=== PATIENT | female | born 1935 | race Caucasian/White ===

== ENCOUNTER 2018-05-26 21:22 | Inpatient (IN) | payer MEDICARE ==
--- NOTE | 2018-05-26 21:50 | RADIOLOGY REPORT (SQ) ---
XR CHEST 1 VIEW HISTORY: Stroke.. COMPARISON: None. FINDINGS/IMPRESSION: Normal cardiomediastinal silhouette. Lungs are clear. No pleural effusion or pneumothorax is seen. No acute osseous findings.
--- NOTE | 2018-05-26 21:52 | RADIOLOGY REPORT (SQ) ---
CT HEAD WITHOUT IV CONTRAST HISTORY: Stroke. Headache. COMPARISON: None. TECHNIQUE: CT scan of the brain. This exam was performed according to our departmental dose-optimization program, which includes automated exposure control, adjustment of the mA and/or kV according to patient size and/or use of iterative reconstruction technique. FINDINGS: The ventricles, cisterns, and sulci are age-appropriate. The sinclair-white matter differentiation is preserved without evidence of acute infarction. Scattered areas of hypoattenuation within the periventricular white matter likely representing chronic microvascular ischemia. No acute intracranial hemorrhage or extra-axial fluid collection is seen. No midline shift, mass effect, or hydrocephalus. Sinus mucosal disease involving the frontal, ethmoid, and maxillary sinuses. No air-fluid levels. The calvarium is intact. IMPRESSION: No evidence of acute infarction. Consider MRI if there is high clinical concern.
[2018-05-26] MEDS ORDERED: ASPIRIN 81 MG TABLET, CHEWABLE PO ONE (22:16)
[2018-05-26] MEDS ORDERED: CLOPIDOGREL BISULFATE 300 MG TABLET PO ONE (22:16)
--- NOTE | 2018-05-26 22:20 | ER Document Report ---
ED General - General Chief Complaint: Weakness Stated Complaint: FACIAL DROOP Time Seen by Provider: 05/26/18 21:26 Notes: Patient is an 82-year-old female with a past medical history of hypertension, hyperlipidemia, [id number] diabetes who presents with left-sided facial droop, left-sided weakness and dysarthria. Last seen normal at 1700. Family noticed symptoms at approximately 730 when the family was having dinner. They noticed that the patient was holding food in her mouth, appear to be having difficulty swallowing and speaking. This prompted them to contact EMS and the patient was subsequently transported to the emergency department. No history of similar symptoms in the past. Family notes that the symptoms have appeared to have mostly resolved at this time without intervention. Nothing seemed to trigger or worsen the symptoms in present. No recent infectious symptoms, fever or constitutional symptoms. She does not have a local primary care doctor. She has been taking all medications as prescribed. TRAVEL OUTSIDE OF THE [place] IN LAST 30 DAYS: No Past Medical History - General Information source: Patient - Social History Smoking Status: Former Smoker Frequency of alcohol use: None Lives with: Spouse/Significant other Family History: Reviewed & Not Pertinent Patient has suicidal ideation: No Patient has homicidal ideation: No - Past Medical History Cardiac Medical History: Reports: Hx Atrial Fibrillation, Hx Hypertension Endocrine Medical History: Reports: Hx Diabetes Mellitus Type 2 Renal/ Medical History: Denies: Hx Peritoneal Dialysis Past Surgical History: Reports: Hx Hysterectomy Review of Systems - Review of Systems Notes: Constitutional: Negative for fever. HENT: Negative for sore throat. Eyes: Negative for visual changes. Cardiovascular: Negative for chest pain. Respiratory: Negative for shortness of breath. Gastrointestinal: Negative for abdominal pain, vomiting or diarrhea. Genitourinary: Negative for dysuria. Musculoskeletal: Negative for back pain. Skin: Negative for rash. Neurological: Positive for left sided weakness now resolved, facial droop 10 point ROS negative except as marked above and in HPI. Physical Exam - Vital signs Vitals: Pulse Resp BP Pulse Ox 102 H 22 H 149/61 H 94 05/26/18 21:44 05/26/18 21:44 05/26/18 21:44 05/26/18 21:44 Interpretation: Hypertensive, Tachycardic Notes: PHYSICAL EXAMINATION: GENERAL: Well-appearing, well-nourished and in no acute distress. HEAD: Atraumatic, normocephalic. EYES: Pupils equal round and reactive to light, extraocular movements intact, sclera anicteric, conjunctiva are normal. ENT: nares patent, oropharynx clear without exudates. Moist mucous membranes. NECK: Normal range of motion, supple without lymphadenopathy LUNGS: Breath sounds clear to auscultation bilaterally and equal. No wheezes rales or rhonchi. HEART: Regular rate and rhythm without murmurs ABDOMEN: Soft, nontender, normoactive bowel sounds. No guarding, no rebound. No masses appreciated. EXTREMITIES: Normal range of motion, no pitting or edema. No cyanosis. NEUROLOGICAL: Mild effacement of the left nasolabial fold. tongue protrudes midline. Extraocular motions intact. Pupils are 2 mm and equally reactive. Normal speech, gait deferred. 5 out of 5 strength in both the distal and proximal upper and lower extremities bilaterally. Sensation is grossly intact throughout. Finger to nose testing normal. Pronator drift normal. PSYCH: Normal mood, normal affect. SKIN: Warm, Dry, normal turgor, no rashes or lesions noted. Course - Re-evaluation Re-evalutation: 05/26/18 22:17 Patient presents with family noticing that she was holding food in her mouth, appeared to have a left facial droop and some mild dysarthria. Family notes that since onset of symptoms patient's left facial droop and dysarthria almost completely resolved. On my examination the patient has a very slight left facial droop, although no ongoing dysarthria or aphasia. She did however fail her swallow test. This is concerning for a limited stroke. She has no other focal neurologic deficits on examination. CT the head is clear. Labs are pending. She has been given a loading dose of 300 mg of Plavix, has also been given aspirin. She will require hospitalization for echocardiogram carotid Doppler, MRI, risk factor modification. She does not have a local primary doctor to follow-up with. Her last seen normal was 1700 placing her outside of the window for TPA and her low NIH stroke scale as well as advanced age likewise does not justify the risks of this medication discussed this case with Dr. Jung with the hospitalist who is excepted the patient for admission. - Vital Signs Vital signs: Temp Pulse Resp BP Pulse Ox 102 H 22 H 149/61 H 94 05/26/18 21:44 05/26/18 21:44 05/26/18 21:44 05/26/18 21:44 - Laboratory Result Diagrams: 05/26/18 21:00 05/26/18 21:00 Laboratory results interpreted by me: 05/26/18 05/26/18 05/26/18 21:00 21:00 21:32 RDW 15.1 H Glucose 240 H POC Glucose 216 H Triglycerides 334 H LDL Cholesterol Direct 116 H VLDL Cholesterol 66.8 H HDL Cholesterol 24 L - Diagnostic Test Radiology reviewed: Image reviewed, Reports reviewed Radiology results interpreted by me: 05/26/18 23:10 CT head: No acute intracranial bleed or mass Chest x-ray: No acute infiltrate or pneumothorax - EKG Interpretation by Me Additional EKG results interpreted by me: 05/26/18 23:11 Sinus rhythm, rate 97. No ST elevations or depressions. QTC is 468. Discharge - Discharge Clinical Impression: Facial droop, Acute ischemic stroke Dysphagia Qualifiers: Dysphagia type: unspecified Qualified Code(s): R13.10 - Dysphagia, unspecified Condition: Fair Disposition: ADMITTED INPATIENT Admitting Provider: Hospitalist Unit Admitted: IMCU Referrals: LOCALMD,NO [NO LOCAL MD] - Follow up as needed
[2018-05-26 22:22] LABS: ABSOLUTE BASOPHILS # (AUTO) 0.1 10^3/uL (0.0-0.2); ABSOLUTE EOSINOPHILS # (AUTO) 0.3 10^3/uL (0.0-0.6); ABSOLUTE LYMPHOCYTES (AUTO) 1.7 10^3/uL (0.5-4.7); ABSOLUTE MONOCYTES (AUTO) 0.4 10^3/uL (0.1-1.4); ABSOLUTE NEUT (AUTO) 4.1 10^3/uL (1.7-8.2); BASOPHILS % (AUTO) 1.5 % (0-2); EOSINOPHILS % (AUTO) 4.4 % (0-6); HEMATOCRIT 38.4 % (36.0-47.0); HEMOGLOBIN 12.8 g/dL (12.0-15.5); LYMPHOCYTES % (AUTO) 25.9 % (13-45); MEAN CORPUSCULAR HEMOGLOBIN 29.9 pg (27.0-33.4); MEAN CORPUSCULAR HGB CONC 33.3 g/dL (32.0-36.0); MEAN CORPUSCULAR VOLUME 90 fl (80-97); MONOCYTES % (AUTO) 6.7 % (3-13); PLATELET COUNT 212 10^3/uL (150-450); RED BLOOD COUNT 4.28 10^6/uL (3.72-5.28); RED CELL DISTRIBUTION WIDTH 15.1 % (11.5-14.0); SEGMENTED NEUTROPHILS % (AUTO) 61.5 % (42-78); TOTAL CELLS COUNTED % (AUTO) 100 %; WHITE BLOOD COUNT 6.6 10^3/uL (4.0-10.5)
[2018-05-26 22:30] LABS: ALANINE AMINOTRANSFERASE 26 U/L (9-52); ALBUMIN 3.6 g/dL (3.5-5.0); ALKALINE PHOSPHATASE 81 U/L (38-126); ANION GAP 10 (5-19); ASPARTATE AMINO TRANSFERASE 21 U/L (14-36); BILIRUBIN,DIRECT 0.4 mg/dL (0.0-0.4); BILIRUBIN,TOTAL 0.8 mg/dL (0.2-1.3); BLOOD UREA NITROGEN 10 mg/dL (7-20); CALCIUM 9.6 mg/dL (8.4-10.2); CARBON DIOXIDE 29 mmol/L (22-30); CHLORIDE 101 mmol/L (98-107); CHOLESTEROL 175.32 mg/dL (0-200); GLUCOSE 240 mg/dL (75-110); POTASSIUM 3.9 mmol/L (3.6-5.0); SODIUM 139.9 mmol/L (137-145); TOTAL PROTEIN 6.5 g/dL (6.3-8.2); TRIGLYCERIDES 334 mg/dL (<150)
[2018-05-26 22:40] LABS: DIRECT LDL 116 mg/dL (<100)
[2018-05-26 22:42] LABS: VLDL CHOLESTEROL 66.8 mg/dL (10-31)
[2018-05-26] MEDS ORDERED: GLUCAGON,HUMAN RECOMB 1 MG INJ IM PRN (23:18)
[2018-05-26] MEDS ORDERED: INSULIN LISPRO 100 UNIT/ML 3 ML VIAL SUBCUT PRN (23:18)
[2018-05-26] MEDS ORDERED: ACETAMINOPHEN 650 MG SUPP.RECT PR PRN (23:18)
[2018-05-26] MEDS ORDERED: DEXTROSE 40% GEL 15 GM TUBE PO PRN ×2 (23:18)
[2018-05-26] MEDS ORDERED: DEXTROSE 50%-WATER 25 GM/50 ML DISP.SYRIN IV PRN ×2 (23:18)
[2018-05-26 23:24] LABS: AMORPHOUS SEDIMENT,URINE TRACE /HPF; APPEARANCE,URINE CLOUDY; BILIRUBIN,URINE NEGATIVE (NEGATIVE); COLOR,URINE YELLOW; GLUCOSE, URINE >=500 mg/dL (NEGATIVE); KETONES,URINE NEGATIVE (NEGATIVE); LEUKOCYTE ESTERASE,URINE LARGE (NEGATIVE); NITRITE,URINE NEGATIVE (NEGATIVE); PROTEIN,URINE NEGATIVE (NEGATIVE); URINE SPECIFIC GRAVITY 1.016
[2018-05-26] MEDS ORDERED: NORMAL SALINE 1000 ML 1,000 ML IV SCH (23:30)
[2018-05-27 03:31] LABS: ABSOLUTE EOSINOPHILS # (AUTO) 0.3 10^3/uL (0.0-0.6); ABSOLUTE LYMPHOCYTES (AUTO) 2.1 10^3/uL (0.5-4.7); ABSOLUTE MONOCYTES (AUTO) 0.7 10^3/uL (0.1-1.4); ABSOLUTE NEUT (AUTO) 4.1 10^3/uL (1.7-8.2); BASOPHILS % (AUTO) 0.7 % (0-2); HEMATOCRIT 37.7 % (36.0-47.0); HEMOGLOBIN 12.6 g/dL (12.0-15.5); LYMPHOCYTES % (AUTO) 28.7 % (13-45); MEAN CORPUSCULAR HGB CONC 33.5 g/dL (32.0-36.0); MEAN CORPUSCULAR VOLUME 89 fl (80-97); PLATELET COUNT 173 10^3/uL (150-450); RED BLOOD COUNT 4.22 10^6/uL (3.72-5.28); SEGMENTED NEUTROPHILS % (AUTO) 56.6 % (42-78); TOTAL CELLS COUNTED % (AUTO) 100 %; WHITE BLOOD COUNT 7.3 10^3/uL (4.0-10.5)
[2018-05-27 03:47] LABS: ANION GAP 8 (5-19); BLOOD UREA NITROGEN 10 mg/dL (7-20); CALCIUM 9.5 mg/dL (8.4-10.2); CARBON DIOXIDE 30 mmol/L (22-30); CHLORIDE 104 mmol/L (98-107); CREATINE KINASE 30 U/L (30-135); GLUCOSE 118 mg/dL (75-110); SODIUM 141.7 mmol/L (137-145); TRIGLYCERIDES 328 mg/dL (<150)
[2018-05-27 03:57] LABS: DIRECT LDL 113 mg/dL (<100)
[2018-05-27 04:02] LABS: VLDL CHOLESTEROL 65.6 mg/dL (10-31)
[2018-05-27 04:07] LABS: CREATINE KINASE MB 0.74 ng/mL (<4.55)
[2018-05-27 04:10] LABS: TROPONIN I < 0.012 ng/mL
[2018-05-27] MEDS: NORMAL SALINE 1000 ML 1,000 ML IV PRN ×2 (05:05→09:53)
--- NOTE | 2018-05-27 05:24 | PDOC H&P ---
History of Present Illness Admission Date/PCP: 05/26/18 23:37 Patient complains of: Difficulty swallowing History of Present Illness: SIA CARRILLO is a 82 year old female with a past medical history of diabetes, dyslipidemia, atrial fibrillation, hypertension. She presents with 8 hours of left-sided facial droop, left-sided weakness and difficulty swallowing. She is found out of the window for TPA and receives conservative management. She denies chronic anticoagulation for previous episode. Left-sided weakness is greatly improved but has failed study. She denies recent change in medications Past Medical History Cardiac Medical History: Reports: Atrial Fibrillation, Hypertension Endocrine Medical History: Reports: Diabetes Mellitus Type 2, Other - Dyslipidemia Past Surgical History Past Surgical History: Reports: Hysterectomy Social History Information Source: Patient Lives with: Spouse/Significant other Smoking Status: Former Smoker Frequency of Alcohol Use: None Hx Recreational Drug Use: No Hx Prescription Drug Abuse: No - Advance Directive Resuscitation Status: Full Code Family History Family History: Hypertension Parental Family History Reviewed: Yes Children Family History Reviewed: Yes Sibling(s) Family History Reviewed.: Yes Medication/Allergy Allergies/Adverse Reactions: No Known Allergies Allergy (Verified 05/27/18 02:14) Review of Systems Constitutional: ABSENT: chills, fever(s), headache(s), weight gain, weight loss Eyes: ABSENT: visual disturbances Ears: ABSENT: hearing changes Cardiovascular: ABSENT: chest pain, dyspnea on exertion, edema, orthropnea, palpitations Respiratory: ABSENT: cough, hemoptysis Gastrointestinal: ABSENT: abdominal pain, constipation, diarrhea, hematemesis, hematochezia, nausea, vomiting Genitourinary: ABSENT: dysuria, hematuria Musculoskeletal: ABSENT: joint swelling Integumentary: ABSENT: rash, wounds Neurological: ABSENT: abnormal gait, abnormal speech, confusion, dizziness, focal weakness, syncope Psychiatric: ABSENT: anxiety, depression, homidical ideation, suicidal ideation Endocrine: ABSENT: cold intolerance, heat intolerance, polydipsia, polyuria Hematologic/Lymphatic: ABSENT: easy bleeding, easy bruising Physical Exam Vital Signs: Temp Pulse Resp BP Pulse Ox 97.7 F 89 20 153/67 H 97 05/27/18 03:03 05/27/18 03:45 05/27/18 03:45 05/27/18 03:45 05/27/18 03:45 General appearance: PRESENT: cooperative, mild distress. ABSENT: morbidly obese Head exam: PRESENT: atraumatic, normocephalic Eye exam: PRESENT: conjunctiva pink, EOMI, PERRLA. ABSENT: scleral icterus Ear exam: PRESENT: normal external ear exam Mouth exam: PRESENT: moist, tongue midline Neck exam: ABSENT: carotid bruit, JVD, lymphadenopathy, thyromegaly Respiratory exam: PRESENT: clear to auscultation kirill. ABSENT: rales, rhonchi, wheezes Cardiovascular exam: PRESENT: irregular rhythm. ABSENT: diastolic murmur, rubs , systolic murmur Pulses: PRESENT: normal dorsalis pedis pul Vascular exam: PRESENT: normal capillary refill GI/Abdominal exam: PRESENT: normal bowel sounds, soft. ABSENT: distended, guarding, mass, organolmegaly, rebound, tenderness Rectal exam: PRESENT: deferred Extremities exam: PRESENT: other Musculoskeletal exam: PRESENT: full ROM - 4+ strength on the left side Neurological exam: PRESENT: alert, awake, oriented to person, oriented to place. ABSENT: CN II-XII grossly intact - persistent left-sided facial weakness and unable to swallow. Psychiatric exam: PRESENT: appropriate affect, normal mood. ABSENT: homicidal ideation, suicidal ideation Skin exam: PRESENT: dry, intact, warm. ABSENT: cyanosis, rash Results Laboratory Results: 05/27/18 03:15 05/27/18 03:15 05/27/18 05/27/18 03:15 03:15 WBC 7.3 RBC 4.22 Hgb 12.6 Hct 37.7 MCV 89 MCH 30.0 MCHC 33.5 RDW 15.0 H Plt Count 173 Seg Neutrophils % 56.6 Lymphocytes % 28.7 Monocytes % 10.0 Eosinophils % 4.0 Basophils % 0.7 Absolute Neutrophils 4.1 Absolute Lymphocytes 2.1 Absolute Monocytes 0.7 Absolute Eosinophils 0.3 Absolute Basophils 0.0 Sodium 141.7 Potassium 4.0 Chloride 104 Carbon Dioxide 30 Anion Gap 8 BUN 10 Creatinine 0.51 L Est GFR ( Amer) > 60 Est GFR (Non-Af Amer) > 60 Glucose 118 H Calcium 9.5 Triglycerides 328 H Cholesterol 170.50 LDL Cholesterol Direct 113 H VLDL Cholesterol 65.6 H HDL Cholesterol 23 L 05/27/18 05/27/18 03:15 03:15 Creatine Kinase 30 CK-MB (CK-2) 0.74 Troponin I < 0.012 Impressions: Chest X-Ray 05/26/18 00:00 FINDINGS/IMPRESSION: Normal cardiomediastinal silhouette. Lungs are clear. No pleural effusion or pneumothorax is seen. No acute osseous findings. Head CT 05/26/18 00:00 IMPRESSION: No evidence of acute infarction. Consider MRI if there is high clinical concern. Assessment & Plan - Diagnosis (1) Acute ischemic stroke Is this a current diagnosis for this admission?: Yes Plan: CVA care set, suspect long-term dysphagia. Consider early GI consultation for PEG. (2) Atrial fibrillation Is this a current diagnosis for this admission?: Yes Plan: IV metoprolol, patient is unaware of bleeding history. Heparin ordered (3) Diabetes Is this a current diagnosis for this admission?: Yes Plan: Obtain A1c, Humalog sliding scale (4) Dyslipidemia Is this a current diagnosis for this admission?: Yes Plan: Statin therapy ideal however dysphasia prevents p.o. (5) Dysphagia Qualifiers: Dysphagia type: unspecified Qualified Code(s): R13.10 - Dysphagia, unspecified Is this a current diagnosis for this admission?: Yes Plan: Speech therapy ordered, will likely require PEG tube. - Time Time Spent: 50 to 70 Minutes - Inpatient Certification Medical Necessity: Need Close Monitoring Due to Risk of Patient Decompensation
[2018-05-27] MEDS ORDERED: HEPARIN SOD (PORCINE) 5,000 UNIT/ML 1 ML SYRINGE SUBCUT SCH (06:00)
[2018-05-27 06:22] LABS: INTERNATIONAL RATION (INR) 0.98; PROTHROMBIN TIME 13.5 SEC (11.4-15.4)
[2018-05-27 06:23] LABS: PARTIAL THROMBOPLASTIN TIME 29.7 SEC (23.5-35.8)
[2018-05-27] MEDS: HEPARIN SOD (PORCINE) 1,000 UNIT/ML 10 ML VIAL IV PRN ×2 (08:44→15:42)
[2018-05-27] MEDS: HEPARIN SODIUM,PORCINE/D5W 25,000 UNIT/250 ML RTUINJ IV PRN (08:49)
[2018-05-27] MEDS: ASPIRIN 81 MG TABLET, CHEWABLE PO SCH (09:53)
[2018-05-27] MEDS ORDERED: ASPIRIN 300 MG SUPP, RECTAL PR SCH (10:00)
--- NOTE | 2018-05-27 10:40 | RADIOLOGY REPORT (SQ) ---
EXAM DESCRIPTION: MRI HEAD WITHOUT COMPLETED DATE/TIME: 05/27/2018 10:24 am REASON FOR STUDY: cva COMPARISON: CT dated 05/26/2018. TECHNIQUE: Multiplanar imaging includes non-contrasted T1, T2, FLAIR, and diffusion with ADC map seq uences. Images stored on PACS. LIMITATIONS: None. FINDINGS: ANATOMY: No anomalies. Normal vascular flow voids. Pituitary fossa normal. CSF SPACES: Atrophy induced prominence of ventricles and CSF spaces. CEREBRUM: High signal intensity lesions scattered throughout the white matter on FLAIR imaging with d istribution suggesting micro-vascular ischemic changes. No evidence of hemorrhage, mass, or extraaxi al fluid collection. POSTERIOR FOSSA: No signal alteration. No hemorrhage. No edema, masses or mass effect. Internal jori tory canals, cerebello-pontine angles, mastoids normal. DIFFUSION IMAGING: A few tiny punctate areas of restricted diffusion in the right insular cortex. ORBITS: No masses. Globes normal. PARANASAL SINUSES: Mucous membrane thickening in the maxillary, ethmoid, and frontal sinuses. OTHER: No other significant finding. IMPRESSION: 1. ATROPHY AND CHRONIC MICRO-VASCULAR ISCHEMIC CHANGES. THERE ARE A FEW TINY PUNCTATE AREAS OF RESTR ICTED DIFFUSION IN THE RIGHT INSULAR CORTEX SUSPICIOUS FOR TINY ACUTE LACUNAR INFARCTS. 2. SINUS DISEASE. EVIDENCE OF ACUTE STROKE: YES. RIGHT MCA. TECHNICAL DOCUMENTATION: JOB ID: [id number] [employer]- All Rights Reserved Reading location - IP/workstation name: [email or web address]
[2018-05-27 10:47] LABS: CREATINE KINASE MB 0.86 ng/mL (<4.55)
[2018-05-27 10:52] LABS: TROPONIN I < 0.012 ng/mL
--- NOTE | 2018-05-27 13:52 | PDOC PROGRESS REPORT ---
Subjective Progress Note for:: 05/27/18 Subjective:: Ms. Barroso is an 82 yr old female with a PMH of diabetes, dyslipidemia, atrial fibrillation, and hypertension who initially presented with left-sided facial droop, left-sided weakness and difficulty swallowing. Patient presented to be in the window. And was not a TPA candidate. Patient was started on heparin drip last night apparently because of initial dysphagia (unable to take PO meds ) for a history of atrial fibrillation. Initial CT of the head was unremarkable. No cute event overnight. Upon encounter, patient is comfortable. She is fully awake and coherent. She has noticeable left-sided facial droop but her left- sided weakness has resolved. She was able to swallow well and was actually evaluated and cleared by speech therapy this morning for regular diet. She denies any headache, dizziness, nausea, chest pain or shortness of breath. Reason For Visit: DYSPHAGIA,CVA,DIABETES Physical Exam Vital Signs: Temp Pulse Resp BP Pulse Ox 97.5 F 69 18 139/57 H 97 05/27/18 12:18 05/27/18 12:18 05/27/18 12:18 05/27/18 12:18 05/27/18 12:18 Intake & Output 05/26/18 05/27/18 05/28/18 06:59 06:59 06:59 Intake Total 960 Output Total 300 Balance 660 General appearance: PRESENT: no acute distress, well-developed, well-nourished Head exam: PRESENT: atraumatic, normocephalic Eye exam: PRESENT: conjunctiva pink, EOMI, PERRLA. ABSENT: scleral icterus Ear exam: PRESENT: normal external ear exam Mouth exam: PRESENT: moist, tongue midline Neck exam: ABSENT: carotid bruit, JVD, lymphadenopathy, thyromegaly Respiratory exam: PRESENT: clear to auscultation kirill. ABSENT: rales, rhonchi, wheezes Cardiovascular exam: PRESENT: RRR. ABSENT: diastolic murmur, rubs, systolic murmur Pulses: PRESENT: normal dorsalis pedis pul Vascular exam: PRESENT: normal capillary refill GI/Abdominal exam: PRESENT: normal bowel sounds, soft. ABSENT: distended, guarding, mass, organolmegaly, rebound, tenderness Rectal exam: PRESENT: deferred Neurological exam: PRESENT: alert, awake, oriented to person, oriented to place , oriented to time, oriented to situation, other - Note of a left-sided facial droop. ABSENT: motor sensory deficit Results Laboratory Results: 05/27/18 03:15 05/27/18 03:15 05/27/18 05/27/18 03:15 03:15 WBC 7.3 RBC 4.22 Hgb 12.6 Hct 37.7 MCV 89 MCH 30.0 MCHC 33.5 RDW 15.0 H Plt Count 173 Seg Neutrophils % 56.6 Lymphocytes % 28.7 Monocytes % 10.0 Eosinophils % 4.0 Basophils % 0.7 Absolute Neutrophils 4.1 Absolute Lymphocytes 2.1 Absolute Monocytes 0.7 Absolute Eosinophils 0.3 Absolute Basophils 0.0 Sodium 141.7 Potassium 4.0 Chloride 104 Carbon Dioxide 30 Anion Gap 8 BUN 10 Creatinine 0.51 L Est GFR ( Amer) > 60 Est GFR (Non-Af Amer) > 60 Glucose 118 H Calcium 9.5 Triglycerides 328 H Cholesterol 170.50 LDL Cholesterol Direct 113 H VLDL Cholesterol 65.6 H HDL Cholesterol 23 L 05/27/18 05/27/18 05/27/18 03:15 03:15 09:17 Creatine Kinase 30 27 L CK-MB (CK-2) 0.74 Troponin I < 0.012 05/27/18 09:17 Creatine Kinase CK-MB (CK-2) 0.86 Troponin I < 0.012 Impressions: Chest X-Ray 05/26/18 00:00 FINDINGS/IMPRESSION: Normal cardiomediastinal silhouette. Lungs are clear. No pleural effusion or pneumothorax is seen. No acute osseous findings. Head CT 05/26/18 00:00 IMPRESSION: No evidence of acute infarction. Consider MRI if there is high clinical concern. Head MRI 05/27/18 00:00 IMPRESSION: 1. ATROPHY AND CHRONIC MICRO-VASCULAR ISCHEMIC CHANGES. THERE ARE A FEW TINY PUNCTATE AREAS OF RESTRICTED DIFFUSION IN THE RIGHT INSULAR CORTEX SUSPICIOUS FOR TINY ACUTE LACUNAR INFARCTS. 2. SINUS DISEASE. EVIDENCE OF ACUTE STROKE: YES. RIGHT MCA. Assessment & Plan - Diagnosis (1) Acute ischemic stroke Is this a current diagnosis for this admission?: Yes Plan: CT of the head was negative. Patient was not a TPA candidate. Her initial presentation of left-sided weakness and dysphagia appears to have resolved. She continues to have left-sided facial droop. An MRI was just done and shows tiny lacunar infarcts on the right insular area. Cardiac Doppler is pending. Called about initial echo report which showed possible thrombus in the IVC. Discussed with Dr. Gifford who deemed this is more consistent with chronic calcification rather than an acute thrombus. Continue aspirin and statin. (2) Atrial fibrillation Is this a current diagnosis for this admission?: Yes Plan: She is currently in sinus rhythm. EKG shows first-degree AV block with a heart rate of 97. On heparin drip. Discussed with patient. She does say she has history of Afib but says she is not on chronic anticoagulation. Discussed risks and benefits of chronic anticoagulation including risk of bleeding. She says she would rather have [facility] decide about it. She prefers to continue the heparin tonight and then decide about intermediate anticoagulation tomorrow. Called [facility] and left a voice message about this. (3) Diabetes Is this a current diagnosis for this admission?: Yes Plan: Continue sliding scale. Will continue to monitor blood sugars. - Time Time Spent with patient: 25-34 minutes
--- NOTE | 2018-05-27 14:09 | RADIOLOGY REPORT (SQ) ---
EXAM DESCRIPTION: CAROTID DOPPLER COMPLETED DATE/TIME: 05/27/2018 1:39 pm REASON FOR STUDY: cva COMPARISON: None. TECHNIQUE: Grayscale ultrasound, Doppler velocity and spectra, and color Doppler images acquired of the extra-cranial carotid and vertebral arteries. Images stored on PACS. LIMITATIONS: None. FINDINGS: RIGHT CAROTID CCA Velocities: Within normal limits. ICA Velocities Peak systolic 1.24 m/s. End diastolic 0.34 m/s. Proximal ICA/CCA peak systolic ratio 1.96. Shadowing plaque. LEFT CAROTID CCA Velocities: Within normal limits. ICA Velocities Peak systolic 2.18 m/s. End diastolic 0.56 m/s. Proximal ICA/CCA peak systolic ratio 3.7. Shadowing plaque. VERTEBRAL ARTERIES: Antegrade flow. Normal waveforms. SUBCLAVIAN ARTERIES: No finding. OTHER: No other significant finding. IMPRESSION: BILATERAL PLAQUE. NO HEMODYNAMICALLY SIGNIFICANT STENOSIS ON THE RIGHT. 50- 69% STENOS IS OF PROXIMAL LEFT INTERNAL CAROTID ARTERY. COMMENT: Quality ID #195: Velocity criteria are extrapolated from the diameter data as defined by t he Society of Radiologists in Ultrasound Consensus Conference. Radiology 2003: 229; 340-346. TECHNICAL DOCUMENTATION: JOB ID: [id number] [employer]- All Rights Reserved Reading location - IP/workstation name: [email or web address]
[2018-05-27 15:16] LABS: APPEARANCE,URINE CLEAR; BILIRUBIN,URINE NEGATIVE (NEGATIVE); COLOR,URINE STRAW; GLUCOSE, URINE 50 mg/dL (NEGATIVE); KETONES,URINE NEGATIVE (NEGATIVE); LEUKOCYTE ESTERASE,URINE MODERATE (NEGATIVE); NITRITE,URINE NEGATIVE (NEGATIVE); PROTEIN,URINE NEGATIVE (NEGATIVE); URINE SPECIFIC GRAVITY 1.006
[2018-05-27 15:46] LABS: CREATINE KINASE MB 0.78 ng/mL (<4.55)
[2018-05-27 15:50] LABS: TROPONIN I < 0.012 ng/mL
--- NOTE | 2018-05-27 20:52 | EKG REPORT ---
SEVERITY:- ABNORMAL ECG - SINUS RHYTHM FIRST DEGREE AV BLOCK PROBABLE LEFT ATRIAL ABNORMALITY ABNRM R PROG, CONSIDER ASMI OR LEAD PLACEMENT BORDERLINE T WAVE ABNORMALITIES : Confirmed by: Mary Lewis MD 27-May-2018 20:51:06
[2018-05-27] MEDS ORDERED: ATORVASTATIN CALCIUM 80 MG TABLET PO SCH (22:00)
[2018-05-28 05:23] LABS: ANION GAP 5 (5-19); BLOOD UREA NITROGEN 9 mg/dL (7-20); CALCIUM 9.3 mg/dL (8.4-10.2); CARBON DIOXIDE 30 mmol/L (22-30); CHLORIDE 104 mmol/L (98-107); GLUCOSE 130 mg/dL (75-110); POTASSIUM 4.1 mmol/L (3.6-5.0); SODIUM 138.8 mmol/L (137-145)
[2018-05-28] MEDS: ASPIRIN 81 MG TABLET, CHEWABLE PO SCH (10:05)
[2018-05-28] MEDS: HEPARIN SODIUM,PORCINE/D5W 25,000 UNIT/250 ML RTUINJ IV PRN (11:18)
--- NOTE | 2018-05-28 14:14 | XCELERA REPORT ---
[address] [address] Transthoracic Echocardiogram Report Name: SIA CARRILLO Age: 82 yrs Gender: Female : 1935 Patient Status: Inpatient Patient Location: [address] [place] [address] Study Date: 05/27/2018 11:04 AM Height: 64 in Weight: 166 lb BSA: 1.8 m2 Procedure: A two-dimensional transthoracic echocardiogram with color flow and Doppler was performed. Study Quality: Fair. Reason For Study: cva afib History: cva afib. Ordering Physician: PUJA REYNOSO Performed By: Parish Milian Interpretation Summary There is no obvious cardiac source of embolus noted on this transthoracic echocardiogram. Follow-up with a TANGELA is suggested if cardiac source is still suspected. The left ventricle is normal in size. There is normal left ventricular wall thickness. LV EF is 60% Left ventricular systolic function is normal. Doppler measurements suggest normal left ventricular diastolic function The left ventricular wall motion is normal. There is no thrombus. The right ventricle is grossly normal size. The right atrium is normal. The left atrial size is normal. There is no evidence of mitral valve prolapse. There is no mitral valve stenosis. There is a mild amount of mitral regurgitation There is no aortic valve stenosis There is aortic sclerosis without aortic stenosis. There is no tricuspid stenosis. There is a trace amount of tricuspid regurgitation Unable to calculate RVSP due lack of TR jet. There is no pulmonic valvular stenosis. There is no pulmonic valvular regurgitation. The aortic root is normal size. There are 2 calcified rounded lesions: Old calcified clot versus scar.( IVC Reiviewed by Dr.Lennox Dutta also) There is no pericardial effusion. There is no obvious cardiac source of embolus noted on this transthoracic echocardiogram. Follow-up with a TANGELA is suggested if cardiac source is still suspected MMode/2D Measurements & Calculations RVDd: 3.4 cm LVIDd: 5.7 cm FS: 31.5 % Ao root diam: 2.5 cm IVSd: 0.76 cm LVIDs: 3.9 cm EDV(Teich): 161.5 ml Ao root area: 5.1 cm2 LVPWd: 1.0 cm ESV(Teich): 66.7 ml LA dimension: 3.4 cm EF(Teich): 58.7 % Doppler Measurements & Calculations MV E max rebecca: MV P1/2t max rebecca: Ao V2 max: LV V1 max P.6 cm/sec 154.2 cm/sec 162.1 cm/sec 2.0 mmHg MV A max rebecca: MV P1/2t: 65.4 msec Ao max PG: LV V1 max: 140.5 cm/sec MVA(P1/2t): 3.4 cm2 10.5 mmHg 71.3 cm/sec MV E/A: 1.1 MV dec slope: 690.2 cm/sec2 MV dec time: 0.19 sec PA V2 max: MV P1/2t-pr_phl: 90.6 cm/sec 65.4 msec PA max P.3 mmHg Left Ventricle The left ventricle is normal in size. There is normal left ventricular wall thickness. LV EF is 60%. Left ventricular systolic function is normal. Doppler measurements suggest normal left ventricular diastolic function. The left ventricular wall motion is normal. There is no thrombus. Right Ventricle The right ventricle is grossly normal size. Atria The right atrium is normal. The left atrial size is normal. Mitral Valve There is mild mitral leaflet calcification. There is mild mitral annular calcification. There is no evidence of mitral valve prolapse. There is no vegetation seen on the mitral valve. There is no mitral valve stenosis. There is a mild amount of mitral regurgitation. Aortic Valve There is no aortic valvular vegetation. There is no aortic valve stenosis. There is aortic sclerosis without aortic stenosis. There is no LVOT obstruction. No aortic regurgitation is present. Tricuspid Valve There is no tricuspid stenosis. There is a trace amount of tricuspid regurgitation. Unable to calculate RVSP due lack of TR jet. Pulmonic Valve There is no pulmonic valvular stenosis. There is no pulmonic valvular regurgitation. Great Vessels The aortic root is normal size. There are 2 calcified rounded lesions: Old calcified clot versus scar.( IVC Reiviewed by Dr.Lennox Dutta also). Effusions There is no pericardial effusion. : PUJA REYNOSO > Mary Lewis
[2018-05-28 16:32] VITALS: BP 145/57
[2018-05-28] MEDS ORDERED: APIXABAN 2.5 MG TABLET PO ONE (17:28)
[2018-05-28] MEDS ORDERED: APIXABAN 2.5 MG TABLET PO SCH (18:00)
--- NOTE | 2018-05-28 18:04 | PDOC DISCHARGE SUMMARY ---
General - Admit/Disc Date/PCP Admission Date/Primary Care Provider: 05/26/18 23:37 Discharge Date: 05/28/18 - Discharge Diagnosis (1) Acute ischemic stroke Is this a current diagnosis for this admission?: Yes (2) Atrial fibrillation Is this a current diagnosis for this admission?: Yes (3) Diabetes Is this a current diagnosis for this admission?: Yes - Additional Information Resuscitation Status: Full Code Prescriptions: Apixaban [Eliquis 2.5 mg Tablet] 2.5 mg PO BID #60 tablet Atorvastatin Calcium [Lipitor 40 mg Tablet] 40 mg PO QHS #30 tablet Metformin HCl [Glucophage 500 mg Tablet] 500 mg PO BID #60 tablet Home Medications: Aspirin [Ecotrin 81 mg EC Tablet] 81 mg PO DAILY 05/27/18 Diltiazem HCl [Diltiazem 24Hr ER] 300 mg PO DAILY 05/27/18 Isosorbide Mononitrate [Isosorbide Mononitrate ER] 30 mg PO DAILY 05/27/18 Losartan Potassium [Cozaar 100 mg Tablet] 100 mg PO DAILY 05/27/18 Multivitamin [Tab-A-De (Multiple Vitamin) Tablet] 1 tab PO DAILY 05/27/18 [place]-3 Fatty Acids/Fish Oil [Fish Oil 1,000 mg Capsule] 1,000 mg PO DAILY 05/27 Omeprazole 20 mg PO DAILY 05/27/18 Apixaban [Eliquis 2.5 mg Tablet] 2.5 mg PO BID #60 tablet 05/28/18 Atorvastatin Calcium [Lipitor 40 mg Tablet] 40 mg PO QHS #30 tablet 05/28/18 Metformin HCl [Glucophage 500 mg Tablet] 500 mg PO BID #60 tablet 05/28/18 History of Present Illness History of Present Illness: SIA CARRILLO is a 82 year old female with a past medical history of diabetes, dyslipidemia, history of atrial fibrillation, hypertension. She presents with 8 hours of left-sided facial droop, left-sided weakness and difficulty swallowing. She is found out of the window for TPA and received conservative management. She denies chronic anticoagulation for previous episode. Hospital Course Hospital Course: SIA CARRILLO is a 82 year old female with a past medical history of diabetes, dyslipidemia, history of atrial fibrillation, hypertension. She presents with 8 hours of left-sided facial droop, left-sided weakness and difficulty swallowing. Initial CT of the head was unremarkable. Patient presented beyond the period for TPA administration. MRI of the brain was pursued and it did show tiny acute infarct on the right insular area. The next day, patient's left-sided weakness completely resolved. Her dysphagia also resolved and she passed swallow evaluation. Patient did have initial persistent left facial droop which persisted but did improve on the day of discharge. Patient was initially started on heparin drip upon admission due to her history of atrial fibrillation. She has a chadsvasc score of 5. Upon admission, she was in sinus rhythm. Patient is not sure why she was not started on chronic anticoagulation. Discussed with family particularly patient' s son who was not opposed to patient being started on chronic anticoagulation. Echocardiogram also done which showed preserved ejection fraction but did show a possible old and calcified clot versus scar on aortic root. Doppler ultrasound showed less than 70% stenosis in the proximal left ICA. Discussed in length the benefits and risks of anticoagulation including the benefit of reducing risk of stroke but conferring risk of bleeding complications. Patient son denies history of falls at home. Patient and son are aware of the risks and benefits of anticoagulation and agreed to transition patient to [facility]. Aspirin and statin were also continued. Her A1c came back improved at 6.2. Her metformin was decreased to 500 mg daily upon discharge. Physical Exam Vital Signs: Temp Pulse Resp BP Pulse Ox 98.3 F 73 18 145/57 H 99 05/28/18 15:23 05/28/18 15:23 05/28/18 15:23 05/28/18 15:55 05/28/18 15:23 Intake & Output 05/27/18 05/28/18 05/29/18 06:59 06:59 06:59 Intake Total 2522 425 Output Total 800 Balance 1722 425 Weight 163 lb 12.855 oz General appearance: PRESENT: no acute distress, well-developed, well-nourished Head exam: PRESENT: atraumatic, normocephalic Eye exam: PRESENT: conjunctiva pink, EOMI, PERRLA. ABSENT: scleral icterus Ear exam: PRESENT: normal external ear exam Mouth exam: PRESENT: moist, tongue midline Neck exam: ABSENT: carotid bruit, JVD, lymphadenopathy, thyromegaly Respiratory exam: PRESENT: clear to auscultation kirill. ABSENT: rales, rhonchi, wheezes Cardiovascular exam: PRESENT: RRR. ABSENT: diastolic murmur, rubs, systolic murmur Vascular exam: PRESENT: normal capillary refill GI/Abdominal exam: PRESENT: normal bowel sounds, soft. ABSENT: distended, guarding, mass, organolmegaly, rebound, tenderness Rectal exam: PRESENT: deferred Extremities exam: PRESENT: full ROM. ABSENT: calf tenderness, clubbing, pedal edema Neurological exam: PRESENT: alert, awake, oriented to person, oriented to place , oriented to time, oriented to situation, other - very minimal left facial droop which is significantly improved from admission. ABSENT: motor sensory deficit Results Laboratory Results: 05/27/18 03:15 05/28/18 04:23 05/28/18 04:23 Sodium 138.8 Potassium 4.1 Chloride 104 Carbon Dioxide 30 Anion Gap 5 BUN 9 Creatinine 0.50 L Est GFR ( Amer) > 60 Est GFR (Non-Af Amer) > 60 Glucose 130 H Calcium 9.3 05/27/18 05/27/18 05/27/18 03:15 03:15 09:17 Creatine Kinase 30 27 L CK-MB (CK-2) 0.74 Troponin I < 0.012 05/27/18 05/27/18 05/27/18 09:17 15:00 15:00 Creatine Kinase 26 L CK-MB (CK-2) 0.86 0.78 Troponin I < 0.012 < 0.012 Impressions: Chest X-Ray 05/26/18 00:00 FINDINGS/IMPRESSION: Normal cardiomediastinal silhouette. Lungs are clear. No pleural effusion or pneumothorax is seen. No acute osseous findings. Head CT 05/26/18 00:00 IMPRESSION: No evidence of acute infarction. Consider MRI if there is high clinical concern. Carotid Doppler Study 05/27/18 00:00 IMPRESSION: BILATERAL PLAQUE. NO HEMODYNAMICALLY SIGNIFICANT STENOSIS ON THE RIGHT. 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 Head MRI 05/27/18 00:00 IMPRESSION: 1. ATROPHY AND CHRONIC MICRO-VASCULAR ISCHEMIC CHANGES. THERE ARE A FEW TINY PUNCTATE AREAS OF RESTRICTED DIFFUSION IN THE RIGHT INSULAR CORTEX SUSPICIOUS FOR TINY ACUTE LACUNAR INFARCTS. 2. SINUS DISEASE. EVIDENCE OF ACUTE STROKE: YES. RIGHT MCA. Qualifiers - * PATIENT BEING DISCHARGED WITH ANY OF THE FOLLOWING DIAGNOSIS: Stroke VTE patient discharged on overlapping Therapy?: Yes Stroke Pt being discharged on Anti-thrombolytic therapy?: No Reason(s) for not prescribing Anti-thrombolytic therapy:: Medical Contraindication Stroke Pt being discharged on Anti-coagulation therapy?: Yes Stroke Pt being discharged on Statins?: Yes
== END 2018-05-28 18:36 | disposition home or self-care (01) | DRG 66 ==
LOC: ER 21:22 → EH 23:37 → 3W 05-27 03:05
PROVIDERS: ADMIT Internal Medicine; ATTEND Internal Medicine
DX: I63.411 Cerebral infarction due to embolism of right middle cerebral artery (principal); I48.91 Unspecified atrial fibrillation; E11.8 Type 2 diabetes mellitus with unspecified complications; R29.810 Facial weakness; R13.10 Dysphagia, unspecified; I10 Essential (primary) hypertension; E78.5 Hyperlipidemia, unspecified
CPT/HCPCS: 36415; 70450; 70551; 71045; 80048; 80053; 80061; 81001; 82550; 82553; 82962; 83036; 84484; 85025; 85610; 85730; 93005; 93010; 93306; 93880; 99285; G8978-GP; G8979-GP; G8987-GO; G8988-GO; G8989-GO; G8996-GN; G8997-GN; G8998-GN; J1644; J3490

== ENCOUNTER 2018-09-02 22:40 | Emergency (ER) | payer MEDICARE ==
[2018-09-03] MEDS ORDERED: NORMAL SALINE 1000 ML 1,000 ML IV ONE (02:13)
[2018-09-03 02:36] LABS: ABSOLUTE BASOPHILS # (AUTO) 0.1 10^3/uL (0.0-0.2); ABSOLUTE LYMPHOCYTES (AUTO) 0.9 10^3/uL (0.5-4.7); ABSOLUTE MONOCYTES (AUTO) 0.6 10^3/uL (0.1-1.4); ABSOLUTE NEUT (AUTO) 11.9 10^3/uL (1.7-8.2); BASOPHILS % (AUTO) 1.1 % (0-2); EOSINOPHILS % (AUTO) 0.2 % (0-6); HEMATOCRIT 38.2 % (36.0-47.0); HEMOGLOBIN 12.5 g/dL (12.0-15.5); LYMPHOCYTES % (AUTO) 6.5 % (13-45); MEAN CORPUSCULAR HEMOGLOBIN 28.7 pg (27.0-33.4); MEAN CORPUSCULAR HGB CONC 32.7 g/dL (32.0-36.0); MEAN CORPUSCULAR VOLUME 88 fl (80-97); MONOCYTES % (AUTO) 4.1 % (3-13); PLATELET COUNT 190 10^3/uL (150-450); RED BLOOD COUNT 4.36 10^6/uL (3.72-5.28); RED CELL DISTRIBUTION WIDTH 15.7 % (11.5-14.0); SEGMENTED NEUTROPHILS % (AUTO) 88.1 % (42-78); TOTAL CELLS COUNTED % (AUTO) 100 %; WHITE BLOOD COUNT 13.5 10^3/uL (4.0-10.5)
[2018-09-03 03:00] LABS: CREATINE KINASE MB 0.88 ng/mL (<4.55); TROPONIN I < 0.012 ng/mL
[2018-09-03 03:37] LABS: ALANINE AMINOTRANSFERASE 20 U/L (9-52); ALBUMIN 3.8 g/dL (3.5-5.0); ALKALINE PHOSPHATASE 72 U/L (38-126); ANION GAP 9 (5-19); ASPARTATE AMINO TRANSFERASE 17 U/L (14-36); BILIRUBIN,DIRECT 0.2 mg/dL (0.0-0.4); BILIRUBIN,TOTAL 0.6 mg/dL (0.2-1.3); BLOOD UREA NITROGEN 14 mg/dL (7-20); CALCIUM 9.5 mg/dL (8.4-10.2); CARBON DIOXIDE 29 mmol/L (22-30); CHLORIDE 105 mmol/L (98-107); CREATINE KINASE 39 U/L (30-135); GLUCOSE 162 mg/dL (75-110); POTASSIUM 4.2 mmol/L (3.6-5.0); SODIUM 142.5 mmol/L (137-145); TOTAL PROTEIN 6.3 g/dL (6.3-8.2)
[2018-09-03 04:29] LABS: APPEARANCE,URINE SLIGHTLY-CLOUDY; BILIRUBIN,URINE NEGATIVE (NEGATIVE); COLOR,URINE YELLOW; GLUCOSE, URINE 150 mg/dL (NEGATIVE); KETONES,URINE NEGATIVE (NEGATIVE); LEUKOCYTE ESTERASE,URINE SMALL (NEGATIVE); NITRITE,URINE NEGATIVE (NEGATIVE); PROTEIN,URINE NEGATIVE (NEGATIVE); URINE SPECIFIC GRAVITY 1.015
--- NOTE | 2018-09-03 05:15 | ER Document Report ---
ED General - General Chief Complaint: Nausea/Vomiting Stated Complaint: VOMITTING AND DIZZINESS Time Seen by Provider: 09/03/18 04:59 Notes: Patient is an 83-year-old female who presents to the emergency department with a chief complaint of dizziness and vomiting. Her symptoms started last night around 7 or 8:00 last night. She states that after she ate she did not feel well. She described her dizziness as more of a lightheaded feeling. She only vomited once. Her bout of vomiting was after she ate. She did feel nauseous, but does not feel nauseous now. Her last bowel movement was yesterday. She adamantly denies any abdominal pain, dysuria, back pain, or any pain of any sort. She denies any sinus pressure or ear pain. She denies any chest pain or fever. She denies any projectile vomiting. She has a history of a CVA, diabe devi, cardiac stent placement. TRAVEL OUTSIDE OF THE [place] IN LAST 30 DAYS: No - Related Data Allergies/Adverse Reactions: No Known Allergies Allergy (Verified 05/27/18 02:14) Past Medical History - Social History Smoking Status: Former Smoker Family History: Hypertension Patient has suicidal ideation: No Patient has homicidal ideation: No - Past Medical History Cardiac Medical History: Reports: Hx Atrial Fibrillation, Hx Hypertension Endocrine Medical History: Reports: Hx Diabetes Mellitus Type 2 Renal/ Medical History: Denies: Hx Peritoneal Dialysis Past Surgical History: Reports: Hx Appendectomy, Hx Hysterectomy Review of Systems - Review of Systems Notes: REVIEW OF SYSTEMS: CONSTITUTIONAL : Denies recent illness. Denies recent unintentional weight loss. Denies fever, chills, or sweats. EENT: Denies eye, ear, throat, or mouth pain, discharge, or symptoms. Denies nasal or sinus congestion. CARDIOVASCULAR: Denies chest pain. RESPIRATORY: Denies shortness of breath, cough, congestion, difficulty breathing, or wheezing. GASTROINTESTINAL: See HPI GENITOURINARY: Denies difficulty urinating, burning, blood in urine, urgency or frequency. MUSCULOSKELETAL: Denies neck and back pain. Denies joint pain or swelling. SKIN: Denies rash, itchiness, or lesions HEMATOLOGIC : Denies easy bruising or bleeding. LYMPHATIC: Denies swollen, painful, enlarged glands. NEUROLOGICAL: See HPI PSYCHIATRIC: Denies stress, anxiety, alteration in sleep patterns, or depression. All other systems reviewed and negative. Physical Exam - Vital signs Vitals: Temp Pulse BP Pulse Ox 97.3 F 73 137/52 H 94 09/02/18 22:51 09/02/18 22:51 09/02/18 22:51 09/02/18 22:51 - Notes Notes: PHYSICAL EXAMINATION: GENERAL: Appears well, healthy, well-nourished, no acute distress. HEAD: Normocephalic, atraumatic. EYES: PERRL, conjunctiva normal, all extraocular movements intact, sclera nonicteric ENT: Moist mucous membranes. NECK: Supple, no noticeable swelling, redness, rash. Normal range of motion. LUNGS: Equal breath sounds bilaterally and clear to auscultation. No wheezes rales or rhonchi. CARDIOVASCULAR: S1-S2, regular rate, regular rhythm. Radial pulses 2+, normal. ABDOMEN: Normoactive bowel sounds. Soft, nontender, no guarding, no rebound t enderness, and no masses palpated. EXTREMITIES: Normal strength and range of motion, no pitting or edema. No cyanosis. NEUROLOGICAL: Moves all extremities upon command. Strength 5/5 in all extrem ities. PSYCH: Normal mood, normal affect. SKIN: Warm, dry. No rash, lesions, ulcerations noted. Normal skin turgor. Course - Re-evaluation Re-evalutation: Patient's labs are unremarkable. CT of her head is normal. She states that she does not have any abdominal pain, urinary symptoms, or any symptoms other than having dizziness and vomiting yesterday. She states she feels better after receiving a 1 L bolus. Her chest x-ray interpretation from the radiologist states that there is a multitude of possibilities on her chest x-ray. I looked at her chest x-ray, and her chest x-ray appears clear to me. Her lung sounds ar e clear, I do not suspect pneumonia. She has not been running any fevers. I discussed her results with her at bedside. - Vital Signs Vital signs: Temp Pulse Resp BP Pulse Ox 98.0 F 76 14 131/73 H 97 09/03/18 08:59 09/03/18 08:59 09/03/18 08:59 09/03/18 08:59 09/03/18 08:59 - Laboratory Result Diagrams: 09/03/18 02:21 09/03/18 03:10 Laboratory results interpreted by me: 09/03/18 09/03/18 09/03/18 02:21 03:10 04:14 WBC 13.5 H RDW 15.7 H Seg Neutrophils % 88.1 H Lymphocytes % 6.5 L Absolute Neutrophils 11.9 H Glucose 162 H Urine Glucose (UA) 150 H Urine Urobilinogen 2.0 H Ur Leukocyte Esterase SMALL H Discharge - Discharge Clinical Impression: Dizziness Nausea & vomiting Qualifiers: Vomiting type: unspecified Vomiting Intractability: non-intractable Qualified Code(s): R11.2 - Nausea with vomiting, unspecified Condition: Stable Disposition: HOME, SELF-CARE Additional Instructions: You were seen in the emergency department for dizziness and vomiting. It is unclear as to what was the cause of your dizziness and vomiting. Please follow- up with your primary care provider in regards to this visit on Wednesday. Labs look normal at this time. If you develop abdominal pain, a fever greater than 100.4 F, or worsening symptoms, please return to the emergency department.
--- NOTE | 2018-09-03 06:03 | RADIOLOGY REPORT (SQ) ---
EXAM DESCRIPTION: XR CHEST 1 VIEW COMPLETED DATE/TME: 09/03/2018 05:15 CLINICAL HISTORY: 83 years Female, weakness COMPARISON:05/26/2018 NUMBER OF VIEWS/TECHNIQUE: 1/AP FINDINGS: Adequate lung volume, moderate left basilar opacity-effusion, small nodular-patchy opacity of the left mid-lower lung field,, normal cardiac silhouette, atherosclerosis, and intact bony thorax. IMPRESSION: Left lower lung opacities-effusion. Differential etiologies include infectious, inflammatory, and neoplastic processes. Recommend CR/CT surveillance including at 7-12 weeks following initiation of any clinically warranted therapy.kana
--- NOTE | 2018-09-03 06:21 | RADIOLOGY REPORT (SQ) ---
EXAM DESCRIPTION: CT HEAD WITHOUT IV CONTRAST COMPLETED DATE/TME: 09/03/2018 05:15 CLINICAL HISTORY: 83 years, Female, weakness COMPARISON: 05/26/2018 TECHNIQUE: Axial CT images of the brain were obtained without contrast. Sagittal and coronal reformats were performed. [facility] [id number] Images stored on PACS. All CT scanners at this facility use dose modulation, iterative reconstruction, and/or weight based dosing when appropriate to reduce radiation dose to as low as reasonably achievable (ALARA). [facility]: Dose Right [facility]: CareDose [facility]: Dose Right [facility]: Teradose 4D [facility]: [employer] LIMITATIONS: None. FINDINGS: There is no cortical acute infarct, hemorrhage, mass, edema, hydrocephalus, or extra-axial fluid collection. There is diffuse cerebral atrophy with mild periventricular and deep white matter chronic microvascular changes. There is a 6 mm osteoma within the left ethmoid air cells. There is mucosal thickening of the ethmoid air cells and maxillary sinuses. The mastoid air cells are clear. There is no acute fracture. IMPRESSION: No acute intracranial abnormality. TECHNICAL DOCUMENTATION: Quality ID # [id number]: Final reports with documentation of one or more dose reduction techniques (e.g., Automated exposure control, adjustment of the mA and/or kV according to patient size, use of iterative reconstruction technique) copyright 2011 [employer]- All Rights Reserved
[2018-09-03] MEDS ORDERED: ONDANSETRON ODT 4 MG TAB (6 TAB/ER DISP) PO PRN (08:31)
[2018-09-03 08:59] VITALS: BP 131/73
--- NOTE | 2018-09-03 12:39 | EKG REPORT ---
SEVERITY:- ABNORMAL ECG - SINUS RHYTHM VENTRICULAR PREMATURE COMPLEX FIRST DEGREE AV BLOCK PROBABLE LEFT ATRIAL ABNORMALITY BORDERLINE T WAVE ABNORMALITIES : Confirmed by: Mary Lewis MD 03-Sep-2018 12:38:57
== END 2018-09-03 08:59 | disposition home or self-care (01) ==
LOC: ER 22:40
DX: R42 Dizziness and giddiness (principal); R11.2 Nausea with vomiting, unspecified; I10 Essential (primary) hypertension; E11.9 Type 2 diabetes mellitus without complications; Z86.73 Personal history of transient ischemic attack (TIA), and cerebral infarction without residual deficits; Z95.5 Presence of coronary angioplasty implant and graft; Z90.49 Acquired absence of other specified parts of digestive tract; Z90.710 Acquired absence of both cervix and uterus
CPT/HCPCS: 93005; 99285; 36415; 82553; 82550; 85025; 80053; 81001; 84484; 71045; 70450; 93010; J7030; A9270

== ENCOUNTER → 2018-09-08 | Outpatient (CLI) | payer MEDICARE ==
--- NOTE | 2018-09-08 15:31 | RADIOLOGY REPORT (SQ) ---
EXAM DESCRIPTION: CT CHEST WITH COMPLETED DATE/TIME: 09/08/2018 3:12 pm REASON FOR STUDY: ABNORMALITY OF LUNG ON CXR (R91.8) R91.8 OTHER NONSPECIFIC ABNORMAL FINDING OF SAVANNAH NG FIELD COMPARISON: None. TECHNIQUE: CT scan of the chest performed using helical scanning technique with dynamic intravenous contrast injection. Images reviewed with lung, soft tissue and bone windows. Reconstructed coronal and sagittal MPR and MIP images reviewed. All images stored on PACS. All CT scanners at this facility use dose modulation, iterative reconstruction, and/or weight based d osing when appropriate to reduce radiation dose to as low as reasonably achievable (ALARA). [facility]: Dose Right [facility]: CareDose [facility]: Dose Right [facility]: Teradose 4D [facility]: Linkdex CONTRAST TYPE AND DOSE: contrast/concentration: Isovue 350.00 mg/ml; Total Contrast Delivered: 80.0 ml; Total Saline Delivered: 55.0 ml RENAL FUNCTION: GFR > 60. RADIATION DOSE: CT Rad equipment meets quality standard of care and radiation dose reduction techniq ues were employed. CTDIvol: 7.6 mGy. DLP: 283 mGy-cm. . LIMITATIONS: None. FINDINGS: LUNGS AND PLEURA: Calcified granuloma left upper lobe. Trace left pleural effusion. No i nfiltrate. HILAR AND MEDIASTINAL STRUCTURES: No identified masses or abnormal nodes. HEART AND VASCULAR STRUCTURES: No aneurysm or dissection. No central pulmonary emboli. No pericardi al effusion. HARDWARE: None in the chest. UPPER ABDOMEN: No significant findings. Limited exam. THYROID AND OTHER SOFT TISSUES: Colloid cyst right thyroid. BONES: Nothing acute. OTHER: No other significant finding. IMPRESSION: Trace left pleural effusion. Old granulomatous disease. TECHNICAL DOCUMENTATION: JOB ID: [id number] Quality ID # [id number]: Final reports with documentation of one or more dose reduction techniques (e.g., Au tomated exposure control, adjustment of the mA and/or kV according to patient size, use of iterative reconstruction technique) 2010 [employer]- All Rights Reserved Reading location - IP/workstation name: [email or web address]
== END ==
LOC: RAD 14:31
PROVIDERS: ATTEND Physician Assistant
DX: J84.10 Pulmonary fibrosis, unspecified (principal); R91.8 Other nonspecific abnormal finding of lung field; E04.1 Nontoxic single thyroid nodule; J90 Pleural effusion, not elsewhere classified
CPT/HCPCS: 71260

== ENCOUNTER 2019-03-03 23:07 | Emergency (ER) | payer MEDICARE ==
[2019-03-03] MEDS ORDERED: IPRATROPIUM/ALBUTEROL 0.5-2.5 MG/3 ML AMPUL NEB ONE ×2 (23:15→23:17)
[2019-03-03] MEDS ORDERED: ALBUTEROL SULFATE 0.083% NEB 2.5 MG/3 ML AMPUL NEB ONE (23:17)
--- NOTE | 2019-03-03 23:38 | ER Document Report ---
ED Respiratory Problem - General Stated Complaint: SHORTNESS OF BREATH Time Seen by Provider: 03/03/19 23:31 Primary Care Provider: OZZY JANSEN MD [Primary Care Provider] - 03/06/19 Notes: Patient is an 83-year-old female that comes to the emergency department for chief complaint of shortness of breath, cough, wheezing, difficulty breathing. She states she felt okay until tonight. She denies fever/chills, nausea/vomiting, chest pain, dizziness. She comes from home by EMS, was given duo nebs and Solu-Medrol, she was given 1 additional DuoNeb upon arrival and then started coughing up some thick sputum. She states she feels much improved now. Past medical history includes atrial fibrillation (on Cardizem and Eliquis), type 2 diabetes on metformin, hypertension, and remote history of asthma. Denies being on oxygen at home or smoking. TRAVEL OUTSIDE OF THE [place] IN LAST 30 DAYS: No - Related Data Allergies/Adverse Reactions: No Known Allergies Allergy (Verified 05/27/18 02:14) Past Medical History - General Information source: Patient, Relative - Social History Smoking Status: Never Smoker Frequency of alcohol use: None Drug Abuse: None Lives with: Family Family History: Reviewed & Not Pertinent, Hypertension - Past Medical History Cardiac Medical History: Reports: Hx Atrial Fibrillation, Hx Hypertension Endocrine Medical History: Reports: Hx Diabetes Mellitus Type 2 Renal/ Medical History: Denies: Hx Peritoneal Dialysis Past Surgical History: Reports: Hx Appendectomy, Hx Hysterectomy Review of Systems - Review of Systems Constitutional: No symptoms reported EENT: No symptoms reported Cardiovascular: See HPI Respiratory: See HPI Gastrointestinal: No symptoms reported Genitourinary: No symptoms reported Female Genitourinary: No symptoms reported Musculoskeletal: No symptoms reported Skin: No symptoms reported Hematologic/Lymphatic: No symptoms reported Neurological/Psychological: No symptoms reported Physical Exam - Vital signs Vitals: Resp Pulse Ox 13 89 L 03/03/19 23:29 03/03/19 23:29 - Notes Notes: GENERAL: Alert, interacts well. No acute distress. HEAD: Normocephalic, atraumatic. EYES: Pupils equal, round, and reactive to light. Extraocular movements intact. ENT: Oral mucosa moist, tongue midline. Oropharynx unremarkable. Airway patent. NECK: Full range of motion. Supple. Trachea midline. LUNGS: Occasional congested coughing. Scattered expiratory wheezes, no rales or rhonchi. No tachypnea or respiratory distress. HEART: Irregularly irregular, no murmur. Intermittent tachycardia. ABDOMEN: Soft, non-tender. Non-distended. Bowel sounds present in all 4 jayy drants. GENITOURINARY: Deferred EXTREMITIES: Moves all 4 extremities spontaneously. No edema, normal radial and dorsalis pedis pulses bilaterally. No cyanosis. BACK: no cervical, thoracic, lumbar midline tenderness. No saddle anesthesia, normal distal neurovascular exam. Moves all extremities in full range of motion. NEUROLOGICAL: Alert and oriented x3. Normal speech. Cranial nerves II through XII grossly intact. PSYCH: Normal affect, normal mood. SKIN: Warm, dry, normal turgor. No rashes or lesions noted. Course - Re-evaluation Re-evalutation: On initial evaluation patient has some mild expiratory wheezes but is mostly clear. No tachypnea. Patient smiling and speaking in full sentences. She is tachycardic with chronic atrial fibrillation. No fever. Work-up pending. Giving an additional DuoNeb. Chest x-ray unremarkable. Troponin is not elevated. CBC, chemistry generally unremarkable except for mild leukocytosis and slightly low bicarbonate, however venous blood gas was checked and is unremarkable with no elevation in CO2 or acidosis. 03/04/19 02:21 Patient is doing a lot better. She states she feels great now. I evaluated her at bedside, her heart rate is 95 with atrial fibrillation, her oxygen saturation is 94% on room air, patient did get up and ambulate and her oxygen saturation maintained at 94%. Patient did get slightly out of breath after walking around the ER but reportedly did quite well. Discussed with patient and family. Because of her productive cough, respiratory symptoms, wheezing, initial hypoxia, she will be covered for potential underlying pneumonia, treated for suspected bronchitis. She will follow-up on Wednesday with her primary care provider. She will return if she worsens in any way. Patient and family state satisfaction and agreement with this plan. - Vital Signs Vital signs: Temp Pulse Resp BP Pulse Ox 98.7 F 117 H 19 111/68 93 03/03/19 23:47 03/03/19 23:47 03/04/19 03:01 03/04/19 03:01 07/06/19 03:01 - Laboratory Result Diagrams: 03/04/19 00:20 03/04/19 00:20 Laboratory results interpreted by me: 03/04/19 03/04/19 00:20 00:20 WBC 10.6 H RDW 16.7 H Plt Count 110 L Seg Neutrophils % 83.4 H Lymphocytes % 12.2 L Absolute Neutrophils 8.8 H Carbon Dioxide 20 L Glucose 236 H Discharge - Discharge Clinical Impression: Wheezing, Productive cough, Shortness of breath Condition: Stable Disposition: HOME, SELF-CARE Additional Instructions: Your examination is most consistent with bronchitis, and upper respiratory infection. Because of your wheezing, take the prednisone as prescribed, use the albuterol inhaler every 4-6 hours as needed using the spacer. We are covering you for pneumonia. Take doxycycline as prescribed. Please follow-up with Dr. Jansen in 2 days (Wednesday) for recheck. Come back if you worsen including difficulty breathing, fever, chest pain, or any other concerning or worsening symptoms. Prescriptions: Albuterol Sulfate [Proair HFA Inhalation Aerosol 8.5 gm MDI] 2 puff IH Q4H PRN #1 mdi PRN Reason: Doxycycline Hyclate 100 mg PO BID #14 capsule Prednisone [Deltasone 20 mg Tablet] 3 tab PO DAILY 5 Days tablet Referrals: OZZY JANSEN MD [Primary Care Provider] - 03/06/19
--- NOTE | 2019-03-03 23:53 | RADIOLOGY REPORT (SQ) ---
EXAM DESCRIPTION: [facility]: XR CHEST 1 VIEW CLINICAL HISTORY: 83 years Female, SOB COMPARISON: 09/03/2018 FINDINGS: Lungs are clear, with no focal infiltrate, pneumothorax, or pleural effusion. 12 mm nodular density with focal central calcification in the lateral left lung field has not changed since 05/26/[address] on 09/08/2018. Mediastinum is within normal limits for this positioning. Bony structures are unremarkable. IMPRESSION: 1. No acute pulmonary findings.
[2019-03-03] MEDS: ALBUTEROL SULFATE 0.083% NEB 2.5 MG/3 ML AMPUL NEB SCH (23:59)
[2019-03-04] MEDS ORDERED: NORMAL SALINE 500 ML IV ONE (00:09)
[2019-03-04 00:46] LABS: ANION GAP 15 (5-19); BLOOD UREA NITROGEN 20 mg/dL (7-20); CARBON DIOXIDE 20 mmol/L (22-30); CHLORIDE 102 mmol/L (98-107); GLUCOSE 236 mg/dL (75-110); SODIUM 137.3 mmol/L (137-145)
[2019-03-04 00:52] LABS: ABSOLUTE BASOPHILS # (AUTO) 0.1 10^3/uL (0.0-0.2); ABSOLUTE LYMPHOCYTES (AUTO) 1.3 10^3/uL (0.5-4.7); ABSOLUTE MONOCYTES (AUTO) 0.4 10^3/uL (0.1-1.4); ABSOLUTE NEUT (AUTO) 8.8 10^3/uL (1.7-8.2); BASOPHILS % (AUTO) 0.7 % (0-2); EOSINOPHILS % (AUTO) 0.3 % (0-6); HEMATOCRIT 40.9 % (36.0-47.0); HEMOGLOBIN 13.4 g/dL (12.0-15.5); LYMPHOCYTES % (AUTO) 12.2 % (13-45); MEAN CORPUSCULAR HEMOGLOBIN 28.6 pg (27.0-33.4); MEAN CORPUSCULAR HGB CONC 32.7 g/dL (32.0-36.0); MEAN CORPUSCULAR VOLUME 88 fl (80-97); MONOCYTES % (AUTO) 3.4 % (3-13); RED BLOOD COUNT 4.67 10^6/uL (3.72-5.28); RED CELL DISTRIBUTION WIDTH 16.7 % (11.5-14.0); SEGMENTED NEUTROPHILS % (AUTO) 83.4 % (42-78); TOTAL CELLS COUNTED % (AUTO) 100 %; WHITE BLOOD COUNT 10.6 10^3/uL (4.0-10.5)
[2019-03-04 00:55] LABS: PLATELET COUNT 110 10^3/uL (150-450)
[2019-03-04 01:27] LABS: VENOUS BLOOD BASE EXCESS -2.2 mmol/L; VENOUS BLOOD HCO3 24.5 mmol/L (20-32); VENOUS BLOOD PCO2 49.8 mmHg (35-63); VENOUS BLOOD PH 7.31 (7.30-7.42)
[2019-03-04 03:21] VITALS: BP 111/68
--- NOTE | 2019-03-04 19:15 | EKG REPORT ---
SEVERITY:- ABNORMAL ECG - ATRIAL FIBRILLATION, V-RATE 116-153 MULTIFORM VENTRICULAR PREMATURE COMPLEXES NONSPECIFIC REPOL ABNORMALITY, DIFFUSE LEADS : Confirmed by: Lamont Bailey 04-Mar-2019 19:14:23
== END 2019-03-04 03:21 | disposition home or self-care (01) ==
LOC: ER 23:07
DX: J45.909 Unspecified asthma, uncomplicated (principal); R06.02 Shortness of breath; D72.829 Elevated white blood cell count, unspecified; R09.02 Hypoxemia; R05 Cough; R00.0 Tachycardia, unspecified; I48.2 Chronic atrial fibrillation; Z79.899 Other long term (current) drug therapy; Z79.02 Long term (current) use of antithrombotics/antiplatelets; E11.9 Type 2 diabetes mellitus without complications; Z79.84 Long term (current) use of oral hypoglycemic drugs; I10 Essential (primary) hypertension
CPT/HCPCS: 93005; 94640 ×2; 99284; 96360; 36415; 85025; 80048; 84484; 82803; 71045; 93010; J7040; A9270 ×2; J7620

== ENCOUNTER → 2019-07-31 | Outpatient (CLI) | payer MEDICARE ==
--- NOTE | 2019-07-31 13:00 | RADIOLOGY REPORT (SQ) ---
EXAM DESCRIPTION: MRI HEAD WITHOUT COMPLETED DATE/TIME: 07/31/2019 12:05 pm REASON FOR STUDY: F01.51 VASCULAR DEMENTIA WITH BEHAVIORAL DISTURBANCE F01.51 VASCULAR DEMENTIA WIT H BEHAVIORAL DISTURBANCE COMPARISON: CT brain 09/03/2018 MRI brain 05/27/2018 TECHNIQUE: Multiplanar imaging includes non-contrasted T1, T2, FLAIR, and diffusion with ADC map seq uences. Images stored on PACS. LIMITATIONS: None. FINDINGS: ANATOMY: No developmental anomalies. Normal vascular flow voids. Pituitary fossa normal. CSF SPACES: Normal in size and contour. No hemorrhage. CEREBRUM: No MRI evidence of acute ischemic change, acute intracranial hemorrhage, mass effect, or mi dline shift. There is spotty bifrontal and biparietal minimal small vessel ischemic change in the hemispheric whit e matter. POSTERIOR FOSSA: No signal alteration. No hemorrhage. No edema, masses or mass effect. Internal jori tory canals, cerebello-pontine angles, mastoids normal. DIFFUSION IMAGING: Negative for acute or sub-acute infarction. ORBITS: No masses. Globes normal. PARANASAL SINUSES: Small mucocele in the right posterior ethmoid air cells axial image 10. Mucous m embrane thickening in the bilateral frontal, ethmoid and maxillary sinuses OTHER: No other significant finding. IMPRESSION: Age-appropriate minimal small vessel ischemic change in the hemispheric white matter Mild inflammatory changes in the paranasal sinuses. EVIDENCE OF ACUTE STROKE: NO. TECHNICAL DOCUMENTATION: JOB ID: [id number] [email or web address]- All Rights Reserved Reading location - IP/workstation name: [email or web address]
== END ==
LOC: RAD 11:23
PROVIDERS: ATTEND Family Medicine
DX: F01.51 Vascular dementia, unspecified severity, with behavioral disturbance (principal)
CPT/HCPCS: 70551

== ENCOUNTER → 2019-09-21 | Outpatient (CLI) | payer MEDICARE ==
--- NOTE | 2019-09-21 13:11 | RADIOLOGY REPORT (SQ) ---
EXAM DESCRIPTION: CHEST PA/LATERAL COMPLETED DATE/TIME: 09/21/2019 11:31 am REASON FOR STUDY: SHORTNESS OF BREATH COMPARISON: 03/03/2019 EXAM PARAMETERS: NUMBER OF VIEWS: two views TECHNIQUE: Digital Frontal and Lateral radiographic views of the chest acquired. RADIATION DOSE: NA LIMITATIONS: none FINDINGS: LUNGS AND PLEURA: Slight blunting of the left costophrenic angle. 15 mm left pulmonary no dule with central calcification. This is stable. MEDIASTINUM AND HILAR STRUCTURES: No masses or contour abnormalities. HEART AND VASCULAR STRUCTURES: Heart normal size. No evidence for failure. BONES: No acute findings. HARDWARE: None in the chest. OTHER: No other significant finding. IMPRESSION: Stable left pulmonary nodules suggestive of a granuloma. No acute cardiopulmonary findi ngs. Slight blunting the left costophrenic angle may suggest chronic pleural thickening. TECHNICAL DOCUMENTATION: JOB ID: [id number] [employer]- All Rights Reserved Reading location - IP/workstation name: [email or web address]
== END ==
LOC: OD 11:16
PROVIDERS: ATTEND Family Medicine
DX: R91.8 Other nonspecific abnormal finding of lung field (principal); R06.02 Shortness of breath
CPT/HCPCS: 71046